=== PATIENT | male | born 1955 | race Caucasian/White ===

== ENCOUNTER 2019-04-15 16:56 | Emergency (ER) | payer MEDICARE, OTHER ==
[2019-04-15 17:15] VITALS: BP 143/79
--- NOTE | 2019-04-15 18:21 | UC ---
Skin Complaint HPI - HPI Summary HPI Summary: Started w/ bumpy blistery rash on top of head, R side of face, nose and R eyelid 3 days ago. No other blisters. When asked if he felt the rash first before seeing it, he said yes. denies fever, photophobia, su, vision changes. - History of Current Complaint Chief Complaint: UCSkin Time Seen by Provider: 04/15/19 17:51 Stated Complaint: BUMPS ON HEAD Hx Obtained From: Patient Onset/Duration: Sudden Onset, Lasting Weeks Pain Intensity: 6 Pain Scale Used: 0-10 Numeric Location: Discrete Character: Pruritus, Painful Aggravating Factor(s): Touch Alleviating Factor(s): Nothing - Allergy/Home Medications Allergies/Adverse Reactions: Allergies Allergy/AdvReac Type Severity Reaction Status Date / Time No Known Allergies Allergy Verified 04/15/19 17:16 Home Medications: Home Medications metFORMIN* [Glucophage 500 MG TAB *] 2 tab PO BID 04/15/19 [History Confirmed ] PMH/Surg Hx/FS Hx/Imm Hx Previously Healthy: Yes Endocrine History: Diabetes GI/ History: Gastroesophageal Reflux - Surgical History Surgical History: Yes Surgery Procedure, Year, and Place: 1998-[facility] REMOVED LEFT ARM-IN OFFICE - Family History Known Family History: Positive: Non-Contributory - Social History Alcohol Use: None Substance Use Type: None Smoking Status (MU): Never Smoked Tobacco Type: Cigarettes, Cigars Amount Used/How Often: 2 PPD & CIGARS X 15 YRS Length of Time of Smoking/Using Tobacco: 15 YEARS Have You Smoked in the Last Year: No When Did the Patient Quit Smoking/Using Tobacco: 1985 Review of Systems All Other Systems Reviewed And Are Negative: Yes Constitutional: Negative: Fever Skin: Positive: Rash, Other Eyes: Positive: Eye Redness - R eyelid. Negative: Blurred Vision, Diplopia, Drainage, Photophobia Respiratory: Positive: Negative Cardiovascular: Positive: Negative Neurological: Positive: Headache Physical Exam Triage Information Reviewed: Yes Appearance: Well-Appearing Vital Signs: Initial Vital Signs Temp 99.8 F 04/15/19 17:10 Pulse 91 04/15/19 17:10 Resp 16 04/15/19 17:10 BP 143/79 04/15/19 17:10 Pulse Ox 99 04/15/19 17:10 Vital Signs Reviewed: Yes Eyes: Positive: Conjunctiva Inflamed, Other: - PERRLA+, no corneal lesions on exam after fluourescein Skin: Positive: Rashes - dried lesions on R side of scalp/head, R side of face and few red developing lesions at R eyelid and a few on nose. Course/Dx - Course Course Of Treatment: Herpetic/singles on R side of head , some dried lesions. +neuralgia and concerning lesions near R eye and nose. We were not able to identify corneal lesions on exam, consulted w/ Dr. Paniagua. He is a pt. of Dr. Putnam and we called his office and spoke w/ : ocular shingles and he will see pt. tomorrow. we chose valacyclovir due to less frequent dosing. - Differential Diagnoses - Skin Complaint Differential Diagnoses: Poison Anne-Marie, Poison Diagonal, Varicella Zoster, Viral Exanthem - Diagnoses Provider Diagnosis: Ocular herpes zoster Discharge - Sign-Out/Discharge Documenting (check all that apply): Patient Departure All imaging exams completed and their final reports reviewed: No Studies - Discharge Plan Condition: Good Disposition: HOME Prescriptions: ValACYclovir (*) [Valtrex 1 GM(*)] 1 gm PO TID 7 Days #21 tab Patient Education Materials: Shingles (ED) Referrals: Vern Putnam MD [Medical Doctor] - 1 Day Additional Instructions: Please follow up with your eye doctor first thing in the AM to set up appt. - Billing Disposition and Condition Condition: GOOD Disposition: Home
[2019-04-15] MEDS ORDERED: Fluorescein Sodium TOPICAL* 1 MG TEST STRIP OPHTHALMIC ONE (18:23)
== END 2019-04-15 19:00 | disposition home or self-care (01) ==
LOC: UCEAST 16:56
DX: B02.30 Zoster ocular disease, unspecified (principal); E11.9 Type 2 diabetes mellitus without complications; Z79.84 Long term (current) use of oral hypoglycemic drugs; Z87.891 Personal history of nicotine dependence
CPT/HCPCS: 99202; A9270-GY; G0463